=== PATIENT | male | born 1970 | race African-American/Black ===

== ENCOUNTER 2021-02-04 12:45 | Inpatient (IN) | payer OTHER, SELFPAY ==
[~2021-02-04] VITALS: Ht 172.7 cm; Wt 83.1 kg
[2021-02-04 12:50] VITALS: BP_SYST 130
--- NOTE | 2021-02-04 12:54 | NUR ---
Patient to ER bed 08 to gown for evaluation. Side rails up.
--- NOTE | 2021-02-04 12:55 | NUR ---
Pt brought by self, ambulatory, A&Ox4, pt presents to ER with generalized weakness and bodyaches, pt states he had dialysis last monday, skin pink and warm, cap refill <3, VSS.
--- NOTE | 2021-02-04 12:56 | NUR ---
Dr Bedoya evaluating patient at bedside
[2021-02-04 13:44] LABS: BASOPHILS # (AUTO) 0.1 K/uL (0.0-0.2); BASOPHILS % (AUTO) 1.2 % (0.0-2.0); EOSINOPHILS # (AUTO) 0.4 K/uL (0.0-0.4); EOSINOPHILS % (AUTO) 8.8 % (0.0-4.0); HEMOGLOBIN 9.6 g/dL (14.0-18.0); LYMPHOCYTES # (AUTO) 1.1 K/uL (1.0-5.5); LYMPHOCYTES % (AUTO) 24.2 % (20.5-51.5); MEAN CORPUSCULAR HEMOGLOBIN 32 pg (27-31); MEAN CORPUSCULAR HGB CONC 33 % (32-36); MEAN CORPUSCULAR VOLUME 97 fL (79.0-98.0); MONOCYTES # (AUTO) 0.4 K/uL (0.0-1.0); MONOCYTES % (AUTO) 8.2 % (1.7-9.3); NEUTROPHILS # (AUTO) 2.6 K/uL (1.8-7.7); NEUTROPHILS % (AUTO) 57.6 % (40.0-70.0); PLATELET COUNT (AUTO) 231 K/uL (130-430); RED CELL DISTRIBUTION WIDTH 17.3 % (9.0-15.0); WHITE BLOOD COUNT (AUTO) 4.6 K/uL (4.8-10.8)
[2021-02-04 13:53] LABS: PROTHROMBIN TIME 10.4 SECS (9.5-12.5)
[2021-02-04 13:56] LABS: ALBUMIN 3.6 g/dL (3.4-4.8); TOTAL BILIRUBIN 0.7 mg/dL (0.0-1.0)
[2021-02-04 14:05] LABS: CALCIUM 5.4 mg/dL (8.4-11.0); CREATININE 19.42 mg/dL (0.55-1.30); POTASSIUM 7.2 mmol/L (3.5-5.1)
[2021-02-04] MEDS ORDERED: INSULIN REGULAR, HUMAN 10 UNITS/0.1 ML INJ IVP ONE (14:45)
[2021-02-04] MEDS ORDERED: SODIUM POLYSTYRENE SULFONATE 15 GM/60 ML UDBTL PO ONE (14:45)
[2021-02-04] MEDS ORDERED: DEXTROSE 50% JECT 50 ML DISP.SYRIN IVP ONE (14:45)
[2021-02-04] MEDS ORDERED: CALCIUM CHLORIDE 1 GM/10 ML DISP.SYRIN (14 mEq Ca++/SYR) IVP ONE (14:45)
[2021-02-04] MEDS ORDERED: SODIUM BICARBONATE 8.4% JECT 50 MEQ/50 ML SYRINGE IVP ONE (14:45)
--- NOTE | 2021-02-04 15:37 | NUR ---
Dr. Platt at bedside for ultrasound IV insertion.
--- NOTE | 2021-02-04 15:55 | NUR ---
# 20 gauge angiocath placed to left ej. Use of asceptic technique. Opsite placed over site. Blood return noted. Blood for lab drawn from site. Flushed with 10 cc of normal saline. No evidence of infiltration noted. Patient tolerated well.
--- NOTE | 2021-02-04 15:55 | NUR ---
fadi sent to lab
[2021-02-04] MEDS ORDERED: CALC200T47 PO (15:57)
[2021-02-04] MEDS ORDERED: NOR10 PO (15:57)
--- NOTE | 2021-02-04 16:07 | NUR ---
Pt educated on k+ of above 7 and the effects of high potassium on the heart. Pt refusing all interventions except Kayexalate. aware.
--- NOTE | 2021-02-04 16:30 | NUR ---
Pierce of care received at this time, A&Ox4, VSS, respirations even and unlabored, per Dayanara RIGGS pt refused Calcium Chloride ,dextrose, humulin and Sodium Bicarbonate , states he feels sick when taking medications, MD Dr Platt notified.
--- NOTE | 2021-02-04 16:42 | NUR ---
med rec complete
--- NOTE | 2021-02-04 18:13 | NUR ---
Patient will be admitted to care of Jerome. Admitted to tele unit. Will go to room 116-a. Belongings list completed. Complete and up to date summary report printed. SBAR report to be given at bedside with opportunity for questions.
[2021-02-04 18:17] VITALS: BP_SYST 145
[2021-02-04] MEDS ORDERED: ONDANSETRON HCL 4 MG/2 ML VIAL IVP PRN (18:30)
[2021-02-04] MEDS ORDERED: ACETAMINOPHEN 325 MG TABLET PO PRN (18:30)
[2021-02-04] MEDS ORDERED: LORazepam 2 MG/ML VIAL IVP PRN (18:30)
[2021-02-04] MEDS ORDERED: D5/0.45 NS 1,000 ML IV SCH (18:30)
[2021-02-04] MEDS ORDERED: NALOXONE HCL 0.4 MG/ML AMP (NARCAN) IVP PRN ×2 (18:30)
[2021-02-04] MEDS ORDERED: HYDROcodone/ACETAMIN 10-325 MG TAB PO PRN (18:30)
[2021-02-04] MEDS ORDERED: HYDROcodone/ACETAMIN 5-325 MG TAB (NORCO/ VICODIN) PO PRN (18:30)
--- NOTE | 2021-02-04 18:34 | NUR ---
ADMIT NOTE Received pt from ER to the floor with a diagnosis of renal failure. No shortness of breath on room air. Denies any pain. Left IJ gauge 18 intact. Admission process initiated. Patient oriented to pain management, safety and call light-teach back done. Will endorse to night nurse.
--- NOTE | 2021-02-04 18:59 | NUR ---
CONSULTATION PAGED/CALLED Reason for Consultation: RENAL FAILURE Person Who was Notified: TRU Consulting Physician: SANAM SIMON IS CORPORATE TRAINER Rn Perinatal Specialty: Ordering Physician: Audi EDWARDS
--- NOTE | 2021-02-04 19:30 | NUR ---
opening note rcvd pt from nasrin RN. pt is A&O x4. Ambulatory. On room air no distress noted. Pt has IV on L IJ #18 gauge. Patent saline locked.Pt educated regarding safety. Call light within reach. Will continue to monitor.
[2021-02-04 20:00] VITALS: BP_SYST 131
--- NOTE | 2021-02-04 20:00 | NUR ---
SPOKE TO DR SIMON PER DR ORDER STAT HEMODIALYSIS
[2021-02-04] MEDS ORDERED: CALCIUM GLUCONATE 1 GM/10 ML VIAL IVP ONE (22:00)
--- NOTE | 2021-02-04 22:25 | NUR ---
pt receiving HD through R av shunt. 3 L removed total.
[2021-02-05] MEDS ORDERED: CALCIUM GLUCONATE 1 GM/10 ML VIAL ONE (00:06)
[2021-02-05 00:46] VITALS: BP_SYST 139
--- NOTE | 2021-02-05 01:00 | NUR ---
RN Rounds Pt vital signs stable. No s/s of distress at this time.
--- NOTE | 2021-02-05 06:43 | NUR ---
closing note pt is A&O x4. Ambulatory. On room air no distress noted. Pt has IV on L IJ #18 gauge. Pt has R AV shunt for dialysis, 3L taken out on shift. Patent saline locked. Will endorse to nasrin RIGGS.
[2021-02-05 07:26] LABS: BASOPHILS % (AUTO) 0.7 % (0.0-2.0); EOSINOPHILS # (AUTO) 0.3 K/uL (0.0-0.4); EOSINOPHILS % (AUTO) 7.7 % (0.0-4.0); HEMATOCRIT 27.9 % (36-54); HEMOGLOBIN 9.4 g/dL (14.0-18.0); MEAN CORPUSCULAR HEMOGLOBIN 33 pg (27-31); MEAN CORPUSCULAR HGB CONC 34 % (32-36); MEAN CORPUSCULAR VOLUME 97 fL (79.0-98.0); MONOCYTES # (AUTO) 0.5 K/uL (0.0-1.0); MONOCYTES % (AUTO) 12.9 % (1.7-9.3); NEUTROPHILS # (AUTO) 1.9 K/uL (1.8-7.7); NEUTROPHILS % (AUTO) 52.7 % (40.0-70.0); PLATELET COUNT (AUTO) 208 K/uL (130-430); RED BLOOD CELL COUNT(AUTO) 2.89 MIL/uL (4.2-6.2); RED CELL DISTRIBUTION WIDTH 16.6 % (9.0-15.0); WHITE BLOOD COUNT (AUTO) 3.7 K/uL (4.8-10.8)
[2021-02-05 07:27] LABS: ALBUMIN 3.2 g/dL (3.4-4.8); CALCIUM 7.3 mg/dL (8.4-11.0); PHOSPHORUS 5.8 mg/dL (2.7-4.5); POTASSIUM 4.4 mmol/L (3.5-5.1); TOTAL BILIRUBIN 0.6 mg/dL (0.0-1.0)
[2021-02-05] MEDS: amLODIPine BESYLATE 10 MG TABLET PO SCH (08:36)
[2021-02-05 08:45] LABS: CREATININE 11.82 mg/dL (0.55-1.30)
--- NOTE | 2021-02-05 08:55 | NUR ---
alert, oriented, and appropriate, no complaint, on the phone with friends bun/cr trending down today, from 90/19.42 to 45/11.82, and calcium up to 7.3, vs 5.4 yesterday. Got 2 tablets of Tums this am. awaitng HD today
[2021-02-05] MEDS ORDERED: CALCIUM CARBONATE 500 MG/ TAB.CHEW PO ONE (09:00)
[2021-02-05 09:12] VITALS: BP_SYST 158
[2021-02-05 12:00] VITALS: BP_SYST 125
--- NOTE | 2021-02-05 14:32 | NUR ---
DISCHARGE PLANNING Per pt was going to [facility] in [place], ph [phone], T//S 0415am chair time. States they arranged for him to start going to [facility] but they never called him with the appt time & he missed it. [facility] then has no HD center. Called and spoke with Speedy at [facility], ph [phone], states it has been arrange at the [facility]. Called & spoke with Heaven at [facility], ph [phone], states it has been arranged for pt to go there with chair time T/T/S at 0945 chair time. First time has to be there an hour early at 0845am. States would need to know when pt being dc'd to set up first visit. Spoke with pt at bedside & [facility] there, pt getting HD done. [facility] already has HD information & I also gave it to pt. Pt is agreeable with [facility]. Isamar is going to discuss with nephrology when pt is going to dc so she can set up first visit for pt. [facility], T/T/S chair time for 0945 [address] [facility], [id number] ph [phone]
[2021-02-05 17:25] VITALS: BP_SYST 140
--- NOTE | 2021-02-05 17:27 | NUR ---
Seen by attending, Hernandez Goldstein, no discharge to home written yet. completed his 3hr hemodialysis, uneventfully, except " felt nauseated, during the session, ZOFRAN 4mg ivp given with relief.
[2021-02-05 20:00] VITALS: BP_SYST 129
[2021-02-06] VITALS: BP_SYST 111
--- NOTE | 2021-02-06 00:44 | NUR ---
RN Rounds Pt vital signs stable. No s/s of distress at this time.
--- NOTE | 2021-02-06 03:00 | NUR ---
GAVE REPORT TO ARLEN RIGGS
--- NOTE | 2021-02-06 03:01 | NUR ---
RECEIVED TRANSFER OF CARE FROM KEELY CARRION
[2021-02-06] MEDS: amLODIPine BESYLATE 10 MG TABLET PO SCH (08:10)
[2021-02-06 08:34] LABS: PHOSPHORUS 4.3 mg/dL (2.7-4.5); POTASSIUM 3.9 mmol/L (3.5-5.1)
[2021-02-06 08:43] LABS: BASOPHILS % (AUTO) 0.5 % (0.0-2.0); EOSINOPHILS # (AUTO) 0.2 K/uL (0.0-0.4); EOSINOPHILS % (AUTO) 6.4 % (0.0-4.0); HEMATOCRIT 30.4 % (36-54); HEMOGLOBIN 10.2 g/dL (14.0-18.0); LYMPHOCYTES % (AUTO) 26.7 % (20.5-51.5); MEAN CORPUSCULAR HEMOGLOBIN 32 pg (27-31); MEAN CORPUSCULAR HGB CONC 34 % (32-36); MEAN CORPUSCULAR VOLUME 96 fL (79.0-98.0); MONOCYTES # (AUTO) 0.5 K/uL (0.0-1.0); MONOCYTES % (AUTO) 13.2 % (1.7-9.3); NEUTROPHILS # (AUTO) 1.9 K/uL (1.8-7.7); NEUTROPHILS % (AUTO) 53.2 % (40.0-70.0); PLATELET COUNT (AUTO) 213 K/uL (130-430); RED BLOOD CELL COUNT(AUTO) 3.17 MIL/uL (4.2-6.2); RED CELL DISTRIBUTION WIDTH 16.4 % (9.0-15.0)
[2021-02-06 08:51] LABS: CALCIUM 6.9 mg/dL (8.4-11.0)
[2021-02-06 08:52] LABS: CREATININE 8.57 mg/dL (0.55-1.30)
[2021-02-06 09:06] LABS: WHITE BLOOD COUNT (AUTO) 3.7 K/uL (4.8-10.8)
--- NOTE | 2021-02-06 09:13 | NUR ---
alert, oriented, and appropriate. lab revealed bun/cr, tremendously trending down 928/8.57), CA 6.9 awaiting attending on round to bring up ca level whether needs some calcium repleted.
[2021-02-06 09:58] VITALS: BP_SYST 110
--- NOTE | 2021-02-06 11:28 | NUR ---
CONSULT CARDIOLOGY ABNORMAL EKG DR EDWARDS,Y [phone] S/W BARRERA EXCHANGE
[2021-02-06] MEDS ORDERED: CALCIUM GLUCONATE 1 GM in NS 100 ML IV ONE (12:00)
--- NOTE | 2021-02-06 12:03 | NUR ---
calcium gluconate ivpb given during hemodialysis.
[2021-02-06 12:41] VITALS: BP_SYST 178
[2021-02-06 18:45] VITALS: BP_SYST 131
[2021-02-06 20:00] VITALS: BP_SYST 129
--- NOTE | 2021-02-06 22:01 | NUR ---
RN Rounds Pt vital signs stable. No s/s of distress at this time.
[2021-02-07] VITALS: BP_SYST 111
--- NOTE | 2021-02-07 01:00 | NUR ---
RN Rounds Pt vital signs stable. No s/s of distress at this time.
--- NOTE | 2021-02-07 06:19 | NUR ---
closing note pt is A&O x4. Ambulatory. On room air no distress noted. Pt has IV on L IJ #18 gauge. Pt has R AV shunt for dialysis, 1L taken out on 02/06. Patent saline locked. Will endorse to nasrin RIGGS.
[2021-02-07 07:31] LABS: PHOSPHORUS 3.8 mg/dL (2.7-4.5); POTASSIUM 3.8 mmol/L (3.5-5.1)
--- NOTE | 2021-02-07 08:00 | NUR ---
ASSUPTION OF CARE: RECEIVED PT A/A/OX4, DX:RISK FOR FLUID VOLUME EXCESS, R/T RENAL FAILURE. PT HAS NO S/S OF DISTRESS NOTE AT THIS TIME, VSS, AFEBRILE, BREATH SOUNDS ARE CLEAR, BREATHING UNLABORED, IV SITE TO LIJ INTACT, PATENT, NO REDNESS OR SWELLING, RIGHT UA FISTULA WITH GOOD BRUIT AND THRILL, NO C/O PAIN OR DISCOMFORT, ORIENTED TO UNIT, CALL LIGHT PLACED WITHIN REACH, WILL CONT' TO MONITOR AND ASSESS.
[2021-02-07 08:05] VITALS: BP_SYST 132
[2021-02-07 08:23] LABS: CALCIUM 6.5 mg/dL (8.4-11.0); CREATININE 8.2 mg/dL (0.55-1.30)
--- NOTE | 2021-02-07 09:00 | NUR ---
FLOOR ATTENDANT: MORNING MEDS GIVEN, PER ORDERED BY Arnaud, TOLERATED WELL,WILL CONT' TO MONITOR AND ASSESS.
[2021-02-07] MEDS: amLODIPine BESYLATE 10 MG TABLET PO SCH (09:13)
[2021-02-07 09:21] LABS: BASOPHILS % (AUTO) 0.4 % (0.0-2.0); EOSINOPHILS # (AUTO) 0.3 K/uL (0.0-0.4); EOSINOPHILS % (AUTO) 6.4 % (0.0-4.0); HEMATOCRIT 29.8 % (36-54); HEMOGLOBIN 10.1 g/dL (14.0-18.0); LYMPHOCYTES # (AUTO) 1.1 K/uL (1.0-5.5); LYMPHOCYTES % (AUTO) 26.7 % (20.5-51.5); MEAN CORPUSCULAR HEMOGLOBIN 33 pg (27-31); MEAN CORPUSCULAR HGB CONC 34 % (32-36); MEAN CORPUSCULAR VOLUME 96 fL (79.0-98.0); MONOCYTES # (AUTO) 0.6 K/uL (0.0-1.0); MONOCYTES % (AUTO) 14.2 % (1.7-9.3); NEUTROPHILS # (AUTO) 2.1 K/uL (1.8-7.7); NEUTROPHILS % (AUTO) 52.3 % (40.0-70.0); PLATELET COUNT (AUTO) 207 K/uL (130-430); RED BLOOD CELL COUNT(AUTO) 3.12 MIL/uL (4.2-6.2); RED CELL DISTRIBUTION WIDTH 16.3 % (9.0-15.0)
[2021-02-07] MEDS ORDERED: CALC200T28 PO (11:02)
--- NOTE | 2021-02-07 12:00 | NUR ---
NURSES NOTES: PT REMAINS STABLE, NO CHANGES NOTED AT THIS TIME, NEEDS MET, CALL LIGHT PLACED WITHIN REACH, WILL CONT' TO MONITOR AND ASSESS.
[2021-02-07 12:09] VITALS: BP_SYST 136
[2021-02-07] MEDS ORDERED: CALC200T47 PO (12:38)
[2021-02-07] MEDS ORDERED: NOR10 PO (12:38)
[2021-02-07 14:31] VITALS: BP_SYST 136
--- NOTE | 2021-02-07 18:30 | NUR ---
DISCHARGE: PT HAS ORDER TO DISCHARGE TO HOME, INSTRUCTIONS GIVEN WITH PRESCRIPTIONS AND FOLLOW-UP CARE, CONDITION IS STABLE, IV SITE DISCONTINUED, TOLERATED WELL, ALL BELONGINGS ACCOUNTED FOR AND RETURNED TO PT, PT ROOMMATE WILL TRANSPORT TO HOME VIA PRIVATE AUTO, HAS BEEN NOTIFIED OF DISCHARGE, PT ESCORTED TO PARKING AREA VIA WHEELCHAIR.
[2021-02-08] MEDS ORDERED: CALCIUM CARBONATE 500 MG/ TAB.CHEW PO SCH (08:00)
== END 2021-02-07 18:30 | disposition home or self-care (01) | DRG 640 ==
LOC: SED 12:45 → STU 15:38
PROVIDERS: ADMIT Preventive Medicine Preventive Medicine/Occupational Environmental Medicine; ATTEND Preventive Medicine Preventive Medicine/Occupational Environmental Medicine
PROC: 5A1D70Z Performance of Urinary Filtration, Intermittent, Less than 6 Hours Per Day (ICD-10-PCS; principal; 2021-02-04)
PROC: 5A1D70Z Performance of Urinary Filtration, Intermittent, Less than 6 Hours Per Day (ICD-10-PCS; 2021-02-05)
PROC: 5A1D70Z Performance of Urinary Filtration, Intermittent, Less than 6 Hours Per Day (ICD-10-PCS; 2021-02-06)
DX: E87.5 Hyperkalemia (principal); N18.6 End stage renal disease; I12.0 Hypertensive chronic kidney disease with stage 5 chronic kidney disease or end stage renal disease; N17.9 Acute kidney failure, unspecified; D63.8 Anemia in other chronic diseases classified elsewhere; D72.819 Decreased white blood cell count, unspecified; E83.51 Hypocalcemia; Z20.822 Contact with and (suspected) exposure to COVID-19; E83.41 Hypermagnesemia; Z90.5 Acquired absence of kidney; Z88.8 Allergy status to other drugs, medicaments and biological substances; Z79.899 Other long term (current) drug therapy; Z99.2 Dependence on renal dialysis
CPT/HCPCS: 36415; 71045; 76770; 80048; 80053; 83735; 84100; 84484; 85025; 85610-TC; 85730-TC; 87081; 90935; 90937; 93005; 93306; 99285; G0378; J0610; J2405